=== PATIENT | female | born 1945 | race Caucasian/White ===

== ENCOUNTER 2019-10-08 20:14 | Emergency (ER) | payer MEDICAID, MEDICARE ==
[~2019-10-08] VITALS: Ht 172.7 cm; Wt 115.0 kg
[2019-10-08] MEDS ORDERED: IV NORMAL SALINE 1000ML BAG 1,000 ML IV SCH (20:22)
--- NOTE | 2019-10-08 20:26 | PHYS DOC ---
Past Medical History Past Medical History: Hypertension Past Surgical History: No Surgical History Smoking Status: Unknown if ever smoked Alcohol Use: None General Adult EDM: Chief Complaint: SHORTNESS OF BREATH HPI: HPI: Patient is a 74 year old female who presents for evaluation of cough and congestion. Onset of symptoms with the past several days. She also has a fever as high as 101 at home. Presenting oxygen sats were 92% and she was hypertensive. Patient complains of some pressure and pain in her chest. Patient denies any known exposure to COVID or any when she no has that illness. Patient was not toxic appearing. Initial blood pressure 236/106. Patient [place] any headache or obvious vision change Review of Systems: Review of Systems: Constitutional: has fever and chills. [] Eyes: Denies change in visual acuity. [] HENT: Denies nasal congestion or sore throat. [] Respiratory: has cough and shortness of breath. [] Cardiovascular: has chest pain or edema. [] GI: Denies abdominal pain, nausea, vomiting, bloody stools or diarrhea. [] : Denies dysuria. [] Musculoskeletal: has back pain (chronic) and mild joint pain. [] Integument: Denies rash. [] Neurologic: Denies headache, focal weakness or sensory changes. [] Endocrine: Denies polyuria or polydipsia. [] Lymphatic: Denies swollen glands. [] Psychiatric: Denies depression or anxiety. [] Heart Score: HEART Score for Chest Pain: HEART Score for Chest Pain Response (Comments) Value History Slighlty/Non-Suspicious 0 ECG Nonspecific Repolarizatio 1 Age > 65 2 Risk Factors >3 Risk Factors or Hx CAD 2 Troponin < Normal Limit 0 Total 5 Risk Factors: Risk Factors: DM, Current or recent (<one month) smoker, HTN, HLP, family history of CAD, obesity. Risk Scores: Score 0 - 3: 2.5% MACE over next 6 weeks - Discharge Home Score 4 - 6: 20.3% MACE over next 6 weeks - Admit for Clinical Observation Score 7 - 10: 72.7% MACE over next 6 weeks - Early Invasive Strategies Current Medications: Current Medications Medications (Trade) Dose Ordered Sig/Pradip Start Time Stop Time Status Last Admin Dose Admin Sodium Chloride 1,000 ml @ 100 mls/hr Q10H 10/08/19 20:22 10/09/19 06:21 UNV Physical Exam: PE: Constitutional: Well developed, well nourished, moderate distress, non-toxic appearance. [] HENT: Normocephalic, atraumatic, bilateral external ears normal, oropharynx moist, no oral exudates, nose normal. [] Eyes: PERRL, EOMI, conjunctiva normal, no discharge. [] Neck: Normal range of motion, no tenderness, supple, no stridor. [] Cardiovascular:Heart rate regular rhythm, no murmur [] Lungs & Thorax: Bilateral breath sounds slightly diminished but essentially clear [] Abdomen: Bowel sounds normal, soft, no tenderness, no masses, no pulsatile masses. [] Skin: Warm, dry, no erythema, no rash. [] Back: No tenderness, no CVA tenderness. [] Extremities: No tenderness, no cyanosis, ROM intact, edema bilateral lower leg is present. [] Neurologic: Alert and oriented X 3, normal motor function, normal sensory function, no focal deficits noted. [] Psychologic: Affect normal, judgement normal, mood normal. [] Current Patient Data: Vital Signs: Laboratory Tests Test 10/08/19 20:35 White Blood Count 6.1 x10^3/uL Red Blood Count 4.46 x10^6/uL Hemoglobin 13.3 g/dL Hematocrit 39.8 % Mean Corpuscular Volume 89 fL Mean Corpuscular Hemoglobin 30 pg Mean Corpuscular Hemoglobin Concent 33 g/dL Red Cell Distribution Width 14.0 % Platelet Count 175 x10^3/uL Neutrophils (%) (Auto) 60 % Lymphocytes (%) (Auto) 30 % Monocytes (%) (Auto) 9 % Eosinophils (%) (Auto) 1 % Basophils (%) (Auto) 0 % Neutrophils # (Auto) 3.6 x10^3/uL Lymphocytes # (Auto) 1.8 x10^3/uL Monocytes # (Auto) 0.5 x10^3/uL Eosinophils # (Auto) 0.1 x10^3/uL Basophils # (Auto) 0.0 x10^3/uL Sodium Level 138 mmol/L Potassium Level 4.6 mmol/L Chloride Level 102 mmol/L Carbon Dioxide Level 29 mmol/L Anion Gap 7 Blood Urea Nitrogen 12 mg/dL Creatinine 0.7 mg/dL Estimated GFR (Cockcroft-Gault) 81.6 BUN/Creatinine Ratio 17 Glucose Level 170 mg/dL Lactic Acid Level 2.4 mmol/L Calcium Level 7.7 mg/dL Total Bilirubin 0.2 mg/dL Aspartate Amino Transf (AST/SGOT) 21 U/L Alanine Aminotransferase (ALT/SGPT) 36 U/L Alkaline Phosphatase 86 U/L Troponin I Quantitative < 0.017 ng/mL [id number]-Type Natriuretic Peptide 608 pg/mL Total Protein 6.4 g/dL Albumin 3.0 g/dL Albumin/Globulin Ratio 0.9 Current Medications Medications (Trade) Dose Ordered Sig/Pradip Route PRN Reason Start Time Stop Time Status Last Admin Dose Admin Sodium Chloride 1,000 ml @ 100 mls/hr Q10H IV 10/08/19 20:22 10/09/19 06:21 10/08/19 20:52 Hydralazine HCl (Apresoline Inj) 10 mg 1X ONCE IVP 10/08/19 20:45 10/08/19 20:46 DC 10/08/19 20:52 Ceftriaxone Sodium (Rocephin) 1 gm 1X ONCE IVP 10/08/19 20:45 10/08/19 20:46 DC 10/08/19 20:51 EKG: EKG: Normal sinus rhythm, rate 86, leftward axis, otherwise unremarkable EKG, left anterior fascicular block, not STEMI [] Radiology/Procedures: Radiology/Procedures: [][facility] [address] [place] [address] IMAGING REPORT Signed PATIENT: ANALY CEJA ACCOUNT: [id number] : 1945 LOCATION: ER AGE: 74 SEX: F EXAM STATUS: REG ER ORD. PHYSICIAN: BELEM JARQUIN DO REASON: cough, short of air PROCEDURE: PORTABLE CHEST 1V INDICATION: Reason: cough, short of air / Spl. Instructions: / History: COMPARISON: None. FINDINGS: Single view of chest obtained. Calcific atherosclerosis. Degenerative changes in the spine and shoulders. Mild interstitial prominence bilaterally with hazy opacities at the lung bases. IMPRESSION: * Mild interstitial prominence with hazy opacities at the lung bases. Could be secondary to atelectasis or infiltrate. This is a mild finding. Electronically signed by: Toya Hanna MD (10/08/2019 8:49 PM) [id number] DICTATED and SIGNED BY: TOYA HANNA MD DATE: 10/08/192048 Course & Med Decision Making: Course & Med Decision Making Pertinent Labs and Imaging studies reviewed. (See chart for details) [] Dragon Disclaimer: Dragon Disclaimer: This electronic medical record was generated, in whole or in part, using a voice recognition dictation system. [id number] Bryce Orourke the hospitalist who accepted patient. Will admit to medical bed with telemetry monitoring bed, patient is a PUI. Will order labetalol 10 mg as needed IV push every 10 minutes should patient blood pressure rise above 200 systolic Departure Departure Impression: Primary Impression: Community acquired pneumonia Qualified Codes: J18.9 - Pneumonia, unspecified organism Additional Impressions: Person under investigation for COVID-19 Uncontrolled hypertension Admitting Physician: HIMJonatan Condition: STABLE Referrals: NO PCP (PCP) Justicifation of Admission Dx: Justifications for Admission: Justification of Admission Dx: Yes CHF: Hemodynamic Instability Comminuty Aquired Pneumonia: Hypoxemia Hypertension: Symp at Rest COVID-19 Assessment: COVID-19 Patient Risks: Age 65 or older: Yes Sign of co-morbidity: Yes Exp to person + for COVID: No Exp to PUI: No Travel from affected area: No Lower respiratory symptoms: Yes Fever: Yes Other: No PPE Use: Full PPE with N95 mask or PAPR: Yes BELEM JARQUIN DO Oct 08, 2019 20:26
[2019-10-08] MEDS ORDERED: cefTRIAXone IV Push 1 GM VIAL. IVP ONE (20:45)
[2019-10-08] MEDS ORDERED: hydrALAZINE 20 MG/ML VIAL. IVP ONE (20:45)
--- NOTE | 2019-10-08 20:52 | RAD ---
INDICATION: Reason: cough, short of air / Spl. Instructions: / History: COMPARISON: None. FINDINGS: Single view of chest obtained. Calcific atherosclerosis. Degenerative changes in the spine and shoulders. Mild interstitial prominence bilaterally with hazy opacities at the lung bases. IMPRESSION: * Mild interstitial prominence with hazy opacities at the lung bases. Could be secondary to atelectasis or infiltrate. This is a mild finding. Electronically signed by: Justin Evans MD (10/08/2019 8:49 PM) [id number]
[2019-10-08 21:05] LABS: BASO % 0 % (0-3); EOS # 0.1 x10^3/uL (0.0-0.7); EOS % 1 % (0-3); HEMATOCRIT 39.8 % (36.0-47.0); HEMOGLOBIN 13.3 g/dL (12.0-15.5); LYMPH # 1.8 x10^3/uL (1.0-4.8); LYMPH % 30 % (24-48); MEAN CORPUSCULAR HEMOGLOBIN 30 pg (25-35); MEAN CORPUSCULAR HGB CONC 33 g/dL (31-37); MEAN CORPUSCULAR VOLUME 89 fL (79-100); MONO # 0.5 x10^3/uL (0.0-1.1); MONO % 9 % (0-9); NEUT # 3.6 x10^3/uL (1.8-7.7); NEUT % 60 % (31-73); PLATELET COUNT 175 x10^3/uL (140-400); RED BLOOD COUNT 4.46 x10^6/uL (3.50-5.40); WHITE BLOOD COUNT 6.1 x10^3/uL (4.0-11.0)
[2019-10-08 21:10] LABS: CALCIUM 7.7 mg/dL (8.5-10.1); CREATININE 0.7 mg/dL (0.6-1.0); GFR 81.6; POTASSIUM 4.6 mmol/L (3.5-5.1)
[2019-10-08 21:17] LABS: ALBUMIN/GLOBULIN RATIO 0.9 (1.0-1.7); TOTAL BILIRUBIN 0.2 mg/dL (0.2-1.0); TOTAL PROTEIN 6.4 g/dL (6.4-8.2)
[2019-10-08] MEDS ORDERED: AZITHRMYCN 500MG IVPB FOR OMNI 250 ML IV ONE (22:00)
[2019-10-08 23:38] VITALS: BP 221/88
--- NOTE | 2019-10-09 06:17 | EKG ---
[facility] [address] [place] [address] Test Date: 2019-10-08 Test Time: 20:26:39 Pat Name: ANALY CEJA Department: Room: Gender: F Tie Maker: [place] : 1945 Requested By: BELEM JARQUIN Order Number: [id number] Reading MD: Measurements Intervals [place] Rate: 86 P: WI: QRS: -34 QRSD: 92 T: 52 QT: 350 QTc: 422 Interpretive Statements SINUS RHYTHM ABNORMAL LEFT AXIS DEVIATION LEFT ANTERIOR FASCICULAR BLOCK QRS(T) CONTOUR ABNORMALITY CONSIDER ANTEROLATERAL MYOCARDIAL DAMAGE ABNORMAL ECG RI6.01 No previous ECG available for comparison
--- NOTE | 2019-10-10 10:08 | NUR ---
IP: Attempted to call COVID test results, no answer.
== END 2019-10-08 23:51 | disposition left against medical advice (07) ==
LOC: ER 20:14
DX: U07.1 COVID-19 (principal); J18.9 Pneumonia, unspecified organism; R05 Cough; R09.81 Nasal congestion; R50.9 Fever, unspecified; I10 Essential (primary) hypertension
CPT/HCPCS: 36415; 71045; 80053; 83605; 83880; 84484; 85025; 87040; 93005; 96374; 96375; 99285; C9803; J0360; J0456; J0696; J7030; U0003